=== PATIENT | female | born 1985 | race Caucasian/White ===

== ENCOUNTER 2017-07-09 13:43 | Emergency (ER) | payer MEDICAID ==
[~2017-07-09] VITALS: Ht 154.9 cm; Wt 48.0 kg
[2017-07-09 14:36] LABS: BASOPHILS # (AUTO) 0.1 X10'3 (0-0.2); BASOPHILS % (AUTO) 0.6 % (0-1); EOSINOPHILS # (AUTO) 0.3 X10'3 (0-0.9); EOSINOPHILS % (AUTO) 2.2 % (0-6); HEMATOCRIT 46.1 % (35.0-45.0); HEMOGLOBIN 15.5 g/dl (12.0-16.0); LYMPHOCYTES % (AUTO) 25.5 % (21-51); MEAN CORPUSCULAR HGB CONC 33.7 % (33.0-36.5); MEAN CORPUSCULAR VOLUME 95.2 FL (78-98); MEAN PLATELET VOLUME 8.5 FL (7.4-10.4); MONOCYTES % (AUTO) 8.6 % (2-12); NEUTROPHILS # (AUTO) 7.5 X10'3 (1.8-7.7); NEUTROPHILS % (AUTO) 63.1 % (42-75); PLATELET COUNT 307 X10'3 (140-440); RED BLOOD COUNT 4.85 X10'6 (4.20-5.60); RED CELL DISTRIBUTION WIDTH 13.3 % (11.5-14.5); WHITE BLOOD COUNT 11.8 X10'3 (4.5-11.0)
[2017-07-09 14:45] LABS: PROTHROMBIN TIME 10.6 SECONDS (9.0-12.0)
[2017-07-09 14:55] LABS: ALANINE AMINOTRANSFERASE 15 U/L (12-78); ALBUMIN 4.5 G/DL (3.4-5.0); ALBUMIN/GLOBULIN RATIO 1.3 (1.1-1.5); ALKALINE PHOSPHATASE 48 IU/L (46-116); ANION GAP 7 (8-16); ASPARTATE AMINO TRANSFERASE 27 U/L (10-37); BILIRUBIN,TOTAL 0.4 MG/DL (0.1-1.0); BLOOD UREA NITROGEN 9 MG/DL (7-18); BUN/CREATININE RATIO 8.7 (6.6-38.0); CALCIUM 9.4 MG/DL (8.5-10.1); CHLORIDE 105 MMOL/L (99-107); CREATININE 1.03 MG/DL (0.40-0.90); GLUCOSE 96 MG/DL (70-104); POTASSIUM 4.4 MMOL/L (3.5-5.1); SODIUM 139 MMOL/L (135-145); TOTAL CARBON DIOXIDE 27.2 MMOL/L (24-32); eGFR 62 ML/MIN
[2017-07-09] MEDS ORDERED: mag hydrox/Alum hydrox/simeth 30ml oral suspension PO ONE (16:00)
[2017-07-09] MEDS ORDERED: LIDOcaine Viscous 15ml cup PO ONE (16:00)
[2017-07-09] MEDS ORDERED: pantoprazole 40mg Tablet.DR PO ONE (16:00)
[2017-07-09] MEDS ORDERED: ondansetron 4mg rapidly disintigrating tab PO ONE (16:00)
[2017-07-09] MEDS ORDERED: PANT-47 PO (16:50)
[2017-07-09] MEDS ORDERED: SUCR1ORA2 PO (16:50)
[2017-07-09 18:36] VITALS: BP 142/57
== END 2017-07-09 18:38 | disposition home or self-care (01) ==
LOC: ER 13:43
DX: S80.12XA Contusion of left lower leg, initial encounter (principal); S80.11XA Contusion of right lower leg, initial encounter; R10.13 Epigastric pain; Z98.51 Tubal ligation status; Z79.899 Other long term (current) drug therapy; Z88.0 Allergy status to penicillin; X58.XXXA Exposure to other specified factors, initial encounter; Y93.89 Activity, other specified; Y92.89 Other specified places as the place of occurrence of the external cause; Y99.8 Other external cause status
CPT/HCPCS: 36415; 80053; 85025; 85610; 93005; 99285

== ENCOUNTER 2023-11-17 08:39 | Emergency (ER) | payer MEDICAID ==
[~2023-11-17] VITALS: Ht 154.9 cm; Wt 43.0 kg
[~2023-11-17 08:39] MED LIST: PANT-47 PO; SUCR1ORA2 PO
[2023-11-17 08:42] VITALS: BP 145/93; PULSE 75; RESP 16; TEMP 97.8; O2SAT 99
[2023-11-17 11:00] LABS: BILIRUBIN,URINE NEGATIVE (Neg); CLARITY,URINE SLIGHTLY CLOUDY (Clear); COLOR,URINE YELLOW (Yellow); GLUCOSE, URINE NEGATIVE (Neg); KETONES,URINE NEGATIVE (Neg); LEUKOCYTE ESTERASE ,URINE NEGATIVE (Neg); NITRITES, URINE NEGATIVE (Neg); OCCULT BLOOD,URINE NEGATIVE (Neg); PROTEIN,URINE NEGATIVE (Neg); UROBILINOGEN,URINE 0.2 E.U/dL (0.2-1.0)
[2023-11-17 11:01] LABS: UA COLLECTION TYPE CLN CATCH MIDSTREAM
[2023-11-17 11:06] LABS: BACTERIA,URINE FEW /HPF (Neg); MUCUS STRANDS FEW /LPF (Neg); RBC,URINE 0-2 /HPF (0-2); SQUAMOUS EPITHELIAL CELL,UR MODERATE /LPF (FEW); WBC,URINE 0-4 /HPF (0-4)
[2023-11-17 11:29] LABS: URINE AMPHETAMINE SCREEN POSITIVE (Neg); URINE BARBITUATE SCREEN NEGATIVE (Neg); URINE BENZODIAZEPINES SCREEN NEGATIVE (Neg); URINE CANNABINOID SCREEN POSITIVE (Neg); URINE COCAINE SCREEN NEGATIVE (Neg); URINE METHADONE SCREEN NEGATIVE (Neg); URINE OPIATE SCREEN NEGATIVE (Neg); URINE PHENCYCLIDINE SCREEN NEGATIVE (Neg)
[2023-11-17 11:49] LABS: BASOPHILS # (AUTO) 0.1 X10'3 (0-0.2); BASOPHILS % (AUTO) 1.2 % (0-1); EOSINOPHILS # (AUTO) 0.2 X10'3 (0-0.9); EOSINOPHILS % (AUTO) 2.6 % (0-6); HEMATOCRIT 44.2 % (35.0-45.0); HEMOGLOBIN 14.7 g/dl (12.0-16.0); LYMPHOCYTES # (AUTO) 3.1 X10'3 (1.1-4.8); LYMPHOCYTES % (AUTO) 33.7 % (21-51); MEAN CORPUSCULAR HEMOGLOBIN 32.2 PG (27.0-31.0); MEAN CORPUSCULAR HGB CONC 33.3 g/dL (33.0-36.5); MEAN CORPUSCULAR VOLUME 96.8 FL (78-98); MONOCYTES # (AUTO) 0.8 X10'3 (0-0.9); MONOCYTES % (AUTO) 8.7 % (2-12); NEUTROPHILS # (AUTO) 4.9 X10'3 (1.8-7.7); NEUTROPHILS % (AUTO) 53.8 % (42-75); PLATELET COUNT 321 X10'3 (140-440); RED BLOOD COUNT 4.56 X10'6 (4.20-5.60); RED CELL DISTRIBUTION WIDTH 13.4 % (11.5-14.5); WHITE BLOOD COUNT 9.2 X10'3 (4.5-11.0)
[2023-11-17 12:02] LABS: APTT 26 SECONDS (22-32); PROTHROMBIN TIME 10.6 SECONDS (9.0-12.0)
[2023-11-17 12:09] LABS: ALANINE AMINOTRANSFERASE 12 U/L (12-78); ALBUMIN 3.4 G/DL (3.4-5.0); ALBUMIN/GLOBULIN RATIO 1.1 (1.1-1.5); ALKALINE PHOSPHATASE 55 IU/L (46-116); ANION GAP 9 (8-16); ASPARTATE AMINO TRANSFERASE 19 U/L (10-37); BILIRUBIN,TOTAL 0.2 MG/DL (0.1-1.0); BLOOD UREA NITROGEN 6 MG/DL (7-18); BUN/CREATININE RATIO 7.7 (10.0-20.0); CALCIUM 8.4 MG/DL (8.5-10.1); CHLORIDE 106 MMOL/L (99-107); CREATININE 0.78 MG/DL (0.40-0.90); GLUCOSE 83 MG/DL (70-104); POTASSIUM 3.7 MMOL/L (3.5-5.1); SODIUM 138 MMOL/L (135-145); TOTAL CARBON DIOXIDE 23.2 MMOL/L (24-32); TOTAL PROTEIN 6.6 G/DL (6.4-8.2); eCRCL 66 ML/MIN; eGFR 82 ML/MIN
[2023-11-17 12:19] LABS: FREE T4 (FREE THYROXINE) 0.68 NG/DL (0.73-1.40); THYROID STIMULATING HORMONE 1.07 ulU/ml (0.34-4.50)
== END 2023-11-17 13:19 | disposition home or self-care (01) ==
LOC: ER 08:41
DX: A49.02 Methicillin resistant Staphylococcus aureus infection, unspecified site (principal); K92.1 Melena; E03.9 Hypothyroidism, unspecified; F15.90 Other stimulant use, unspecified, uncomplicated; Z88.6 Allergy status to analgesic agent; Z88.5 Allergy status to narcotic agent; Z88.1 Allergy status to other antibiotic agents; Z79.899 Other long term (current) drug therapy; Z98.51 Tubal ligation status
CPT/HCPCS: 36415; 80053; 80305; 81001; 84439; 84443; 85025; 85610; 85730; 86885; 86900; 86901; 99283

== ENCOUNTER 2024-09-12 08:54 | Emergency (ER) | payer MEDICAID ==
[~2024-09-12] VITALS: Ht 154.9 cm; Wt 50.9 kg
[2024-09-12 08:57] VITALS: BP 129/84; PULSE 78; RESP 16; O2SAT 98
[2024-09-12 10:35] LABS: BILIRUBIN,URINE NEGATIVE (Neg); CLARITY,URINE CLEAR (Clear); COLOR,URINE YELLOW (Yellow); GLUCOSE, URINE NEGATIVE (Neg); KETONES,URINE NEGATIVE (Neg); LEUKOCYTE ESTERASE ,URINE NEGATIVE (Neg); NITRITES, URINE NEGATIVE (Neg); OCCULT BLOOD,URINE SMALL (Neg); PH,URINE 5.5 (4.8-8.0); PROTEIN,URINE NEGATIVE (Neg); UROBILINOGEN,URINE 0.2 E.U/dL (0.2-1.0)
[2024-09-12 10:37] LABS: UA COLLECTION TYPE CLN CATCH MIDSTREAM
[2024-09-12 10:49] LABS: BACTERIA,URINE FEW /HPF (Neg); SQUAMOUS EPITHELIAL CELL,UR MANY /LPF (FEW); TRANSITIONAL EPI CELLS,URINE FEW /HPF; WBC,URINE 0-4 /HPF (0-4)
[2024-09-12 10:51] LABS: ALANINE AMINOTRANSFERASE 17 U/L (12-78); ALBUMIN 3.8 G/DL (3.4-5.0); ALBUMIN/GLOBULIN RATIO 1.1 (1.1-1.5); ALKALINE PHOSPHATASE 54 IU/L (46-116); ANION GAP 7 (8-16); ASPARTATE AMINO TRANSFERASE 7 U/L (10-37); BILIRUBIN,TOTAL 0.3 MG/DL (0.1-1.0); BLOOD UREA NITROGEN 8 MG/DL (7-18); BUN/CREATININE RATIO 9.1 (10.0-20.0); CALCIUM 8.6 MG/DL (8.5-10.1); CHLORIDE 109 MMOL/L (99-107); CREATININE 0.88 MG/DL (0.40-0.90); GLUCOSE 77 MG/DL (70-104); POTASSIUM 4.2 MMOL/L (3.5-5.1); SODIUM 142 MMOL/L (135-145); TOTAL CARBON DIOXIDE 26.3 MMOL/L (24-32); TOTAL PROTEIN 7.3 G/DL (6.4-8.2); eCRCL 64 ML/MIN; eGFR 71 ML/MIN
[2024-09-12 10:55] LABS: BASOPHILS % (AUTO) 0.7 % (0-1); EOSINOPHILS # (AUTO) 0.2 X10'3 (0-0.9); EOSINOPHILS % (AUTO) 2.8 % (0-6); HEMATOCRIT 43.2 % (35.0-45.0); HEMOGLOBIN 14.4 g/dl (12.0-16.0); LYMPHOCYTES # (AUTO) 2.1 X10'3 (1.1-4.8); LYMPHOCYTES % (AUTO) 32.4 % (21-51); MEAN CORPUSCULAR HEMOGLOBIN 32.4 PG (27.0-31.0); MEAN CORPUSCULAR HGB CONC 33.4 g/dL (33.0-36.5); MEAN PLATELET VOLUME 8.7 FL (7.4-10.4); MONOCYTES # (AUTO) 0.6 X10'3 (0-0.9); MONOCYTES % (AUTO) 8.6 % (2-12); NEUTROPHILS # (AUTO) 3.6 X10'3 (1.8-7.7); NEUTROPHILS % (AUTO) 55.5 % (42-75); PLATELET COUNT 312 X10'3 (140-440); RED BLOOD COUNT 4.45 X10'6 (4.20-5.60); RED CELL DISTRIBUTION WIDTH 13.4 % (11.5-14.5); WHITE BLOOD COUNT 6.4 X10'3 (4.5-11.0)
[2024-09-12 11:00] LABS: THYROID STIMULATING HORMONE 1.34 ulU/ml (0.34-4.50)
[2024-09-12 11:42] VITALS: TEMP 97
== END 2024-09-12 11:44 | disposition home or self-care (01) ==
LOC: ER 08:55
DX: R53.1 Weakness (principal); F15.90 Other stimulant use, unspecified, uncomplicated; Z98.51 Tubal ligation status; Z88.5 Allergy status to narcotic agent; Z88.1 Allergy status to other antibiotic agents; Z79.899 Other long term (current) drug therapy
CPT/HCPCS: 36415; 80053; 81001; 84443; 85025; 93005; 99284

== ENCOUNTER 2024-11-20 11:03 | Emergency (ER) | payer MEDICAID ==
[~2024-11-20] VITALS: Ht 154.9 cm; Wt 52.5 kg
[2024-11-20 11:09] VITALS: BP 146/99; PULSE 70; RESP 18; TEMP 97.1; O2SAT 94
== END 2024-11-20 15:17 | disposition left against medical advice (07) ==
LOC: ER 11:04
DX: R11.10 Vomiting, unspecified (principal); Z53.21 Procedure and treatment not carried out due to patient leaving prior to being seen by health care provider; Z88.1 Allergy status to other antibiotic agents; Z88.6 Allergy status to analgesic agent

== ENCOUNTER 2025-02-26 15:39 | Outpatient (CLI) | payer MEDICAID ==
--- NOTE | 2025-02-26 16:58 | RADIOLOGY REPORT ---
PROCEDURE: MR MRI HEAD Indication: ELEVATED GROWTH HORMONE LEVEL COMPARISON: None TECHNIQUE: Multiplanar multisequence images of the brain are obtained. FINDINGS: There is no abnormal diffusion restriction. There is no intracranial hemorrhage. No extra-axial flui d collection, mass effect or midline shift. The ventricles are midline and normal in size. The cister ns are patent. Normal intracranial flow voids are preserved. No abnormal susceptibility signal. The pituitary gland appears normal in size. Pituitary infundibulum appears midline. However limited evaluation secondary to noncontrast examination / non pituitary protocol Small bilateral mastoid effusions. The visualized orbits are unremarkable. IMPRESSION: No acute cerebrovascular ischemia. No acute intracranial abnormality. If there is concern for pituitary abnormality, recommend MRI of the brain with and without contrast, pituitary protocol. Small bilateral mastoid effusions.
[2025-02-26] MEDS ORDERED: GADOTERATE MEGLUMINE 7.5 MMOL/15 ML VIAL IV ONE (18:24)
== END 2025-02-26 23:59 | disposition home or self-care (01) ==
LOC: MRI 15:39
PROVIDERS: ATTEND Family Medicine
DX: H70.93 Unspecified mastoiditis, bilateral (principal); R79.89 Other specified abnormal findings of blood chemistry
CPT/HCPCS: 70553; A9575

== ENCOUNTER 2025-06-03 15:27 | Outpatient (CLI) | payer MEDICAID ==
[2025-06-03] MEDS ORDERED: GADOTERATE MEGLUMINE 7.5 MMOL/15 ML VIAL IV ONE (18:24)
--- NOTE | 2025-06-03 18:28 | RADIOLOGY REPORT ---
EXAM: MR MRI HEAD INDICATION: ELEVATED GROWTH HORMONE LEVEL TECHNIQUE: Multiplanar, multisequence imaging of the brain with and without contrast with pituitary protocol COMPARISON: MR MRI HEAD on DOS: 02/26/25 FINDINGS: [PARENCHYMA]: No acute infarct or hemorrhage. No mass effect or herniation. No abnormal susceptibility weighted artifact. Normal appearance of the posterior T1 hyperintensity of the neurohypophysis normal appearance of the pituitary stalk. No abnormal leptomeningeal or pachymeningeal enhancement. No definitive abnormal intra-axial enhancement. On early phase contrast enhancement, questionable area measuring 5 mm with relative hypoenhancement to the remainder of the pituitary along the left aspect of the pituitary (series 15, image 8). No mass effect along the optic chiasm normal appearance of bilateral cavernous sinuses and Meckel's caves. [VENTRICLES]: No hydrocephalus. [EXTRA-AXIAL SPACES]: No extra-axial fluid collections. [FLOW VOIDS]: The flow voids are intact. [EXTRA-CRANIAL STRUCTURES]: The bony structures are intact. Trace fluid in bilateral mastoid air cells. IMPRESSION: 1. Correlate with clinical exam for left-sided pituitary microadenoma measuring 5 mm as detailed above. 2. Normal appearance of the pituitary stalk.
== END 2025-06-03 23:59 | disposition home or self-care (01) ==
LOC: MRI 15:27
PROVIDERS: ATTEND Family Medicine
DX: D35.2 Benign neoplasm of pituitary gland (principal); R79.89 Other specified abnormal findings of blood chemistry
CPT/HCPCS: 70553; A9575